=== PATIENT | female | born 1955 | race Caucasian/White ===

== ENCOUNTER 2017-07-22 12:00 | Outpatient (RCR) | payer BC | END 2017-07-27 | LOC: OT 12:00 | PROVIDERS: ATTEND Surgery Surgery of the Hand | DX: S62.616D Displaced fracture of proximal phalanx of right little finger, subsequent encounter for fracture with routine healing (principal) | CPT/HCPCS: 97010; 97110 ×2; 97139; 97165; L3913 ==

== ENCOUNTER 2017-08-05 08:00 | Outpatient (RCR) | payer BC | END 2017-08-27 | LOC: OT 08:00 | PROVIDERS: ATTEND Surgery Surgery of the Hand | DX: S62.616D Displaced fracture of proximal phalanx of right little finger, subsequent encounter for fracture with routine healing (principal) | CPT/HCPCS: 97139 ==